=== PATIENT | female | born 1955 | race Caucasian/White ===

== ENCOUNTER 2018-08-07 07:48 | Day surgery (SDC) | payer OTHER ==
[2018-08-07] MEDS: SOD CHLORIDE 0.9% 1,000 ML IV (06:30)
[2018-08-07] MEDS: CEFAZOLIN 2 GM/50 ML (PMX) 50 ML IVPB (06:30)
[~2018-08-07 07:48] MED LIST: FENTAnyl 50 MCG/ML VIAL; MIDAZOLAM 1 MG/ML 2 ML INJ
[2018-08-07] MEDS ORDERED: NEOSTIGMINE 3 MG/3 ML SYRINGE ×2 (08:27→08:29)
[2018-08-07] MEDS ORDERED: PROPOFOL 20 ML ×2 (08:27→08:29)
[2018-08-07] MEDS ORDERED: GLYCOPYRROLATE 0.4 MG INJ (08:27)
[2018-08-07] MEDS ORDERED: LIDOCAINE 2% (SDV) 5 ML INJ (08:27)
[2018-08-07] MEDS ORDERED: ROCURONIUM 50 MG INJ (08:27)
[2018-08-07] MEDS ORDERED: FENTAnyl 50 MCG/ML VIAL (08:28)
[2018-08-07] MEDS ORDERED: LIDOCAINE 100 MG SYRINGE (08:29)
[2018-08-07] MEDS ORDERED: SUCCINYLCHOLINE CHLORIDE 100 MG/5 ML SYG IV (08:30)
[2018-08-07] MEDS ORDERED: DEXAMETHASONE 4 MG/ML 1 ML INJ ×2 (08:31→08:55)
[2018-08-07] MEDS ORDERED: ONDANSETRON 4 MG INJ (08:31)
[2018-08-07] MEDS ORDERED: BUPIVACAINE 0.25%/EPI (SDV) 30 ML INJ (09:47)
[2018-08-07] MEDS ORDERED: LABETALOL HCL 20MG INJ IV (10:00)
[2018-08-07] MEDS ORDERED: FENTAnyl 50 MCG/ML VIAL IV ×2 (10:00)
[2018-08-07] MEDS ORDERED: EPHEDrine SULFATE 50 MG/5 ML SYG IV (10:00)
[2018-08-07] MEDS ORDERED: OXYCODONE/ACETAMINOPHEN (5/325) TAB PO ×4 (10:00→12:30)
[2018-08-07] MEDS ORDERED: morphine (1 MG/ML) 10ML SYRINGE IV ×3 (10:00)
[2018-08-07] MEDS ORDERED: DIPHENHYDRAMINE 50 MG INJ IV (10:00)
[2018-08-07] MEDS ORDERED: MIDAZOLAM 1 MG/ML 2 ML INJ IV (10:00)
[2018-08-07] MEDS ORDERED: HYDROmorphONE 1 MG/5 ML IV SYRINGE IV ×2 (10:00)
[2018-08-07] MEDS ORDERED: ATROPINE 1 MG/10 ML SYRINGE IV (10:00)
[2018-08-07] MEDS ORDERED: ONDANSETRON 4 MG INJ IV ×2 (10:00→12:30)
[2018-08-07] MEDS ORDERED: hydrALAzine 20 MG INJ IV (10:00)
[2018-08-07] MEDS: BUPIVACAINE 0.25%/EPI (SDV) 30 ML INJ INJ ×2 (10:28)
[2018-08-07] MEDS: POLYMYXIN/BACITRACIN 1L IRRIG IRR ×2 (11:17)
[2018-08-07] MEDS ORDERED: morphine 2 MG INJ IV (12:30)
[2018-08-07] MEDS: MEPERIDINE 25 MG INJ IV (12:30)
[2018-08-07] MEDS ORDERED: KETOROLAC 30 MG INJ IV (12:30)
[2018-08-07] MEDS: HYDROmorphONE 1 MG/5 ML IV SYRINGE IV ×2 (12:35→13:15)
[2018-08-08] MEDS ORDERED: IBUPROFEN 600 MG TAB PO
== END 2018-08-07 14:15 | disposition home or self-care (01) ==
LOC: SDS 07:48
DX: K43.9 Ventral hernia without obstruction or gangrene (principal); E11.9 Type 2 diabetes mellitus without complications; I10 Essential (primary) hypertension; E66.9 Obesity, unspecified; Z68.29 Body mass index [BMI] 29.0-29.9, adult
CPT/HCPCS: 49653; 71045; 82962; 88302